=== PATIENT | male | born 1965 | race Caucasian/White ===

== ENCOUNTER 2018-06-04 08:44 | Day surgery (SDC) | payer BC ==
--- NOTE | 2018-06-02 17:15 | Pre-op HX & Phy Repo 2 SIG ---
DATE OF ADMISSION: 06/04/2018 SCHEDULED FOR OUTPATIENT SURGERY: June 04, 2018. HISTORY OF PRESENT ILLNESS: The patient is a 52-year-old male in overall good health with a symptomatic right inguinal hernia. The patient states that as a . He had bilateral inguinal hernias and only the right side was repaired in 2010. I repaired a left inguinal hernia and he did very well. He now has developed a right inguinal hernia with occasional pain and he is scheduled to undergo open repair with mesh. MEDICATIONS: Lipitor and Advil as needed. ALLERGIES: Sulfa and Vioxx. OPERATIONS: Left inguinal hernia repair 2010, right inguinal hernia repair as a . REVIEW OF SYSTEMS: Negative colonoscopy 2015. PHYSICAL EXAMINATION: GENERAL: The patient is 5 feet 7 inches, 150 pounds. He has recently been examined by his primary care physician, Dr. Ever Mclain, who was providing separate history and physical. Pertinent exam reveals the abdomen to be soft. There is no mass, tenderness, organomegaly. There is a moderate-size reducible right inguinal hernia. The left inguinal canal is intact. Testes and scrotum are within normal limits. EXTREMITIES: Femoral pulses are 3+. There is no inguinal lymphadenopathy. IMPRESSION: Right inguinal hernia. PLAN: I have had a full discussion with the patient regarding the nature of his condition, the nature of the surgery, indications, alternatives, options, and risks including bleeding, infection, recurrence, despite use of mesh, neuritis or neuralgia, testicular or scrotal swelling or other abnormality, etc. All questions have been answered. He understands and agrees to proceed with open repair of right inguinal hernia with mesh as an outpatient under anesthesia. Oli Ferguson M.D. DR: Shiva JOB#: [id number] CC:
[~2018-06-04] VITALS: Ht 170.2 cm; Wt 65.8 kg
[2018-06-04] VITALS (12 sets, daily range): BP systolic 92–118; BP diastolic 56–85
[~2018-06-04 08:44] MED LIST: NKM
[2018-06-04] MEDS ORDERED: MILK THISTLE140 M1 PO (09:34)
[2018-06-04] MEDS ORDERED: Lidocaine 1% Plain 30 ml INJ ONE (09:39)
[2018-06-04] MEDS ORDERED: Bacitracin 50000 Units Vial ONE (09:39)
[2018-06-04] MEDS ORDERED: Bupivacaine 0.5% 10ml INJ ONE ×2 (09:39→09:40)
--- NOTE | 2018-06-04 10:00 | Pre-Procedure Note/Attestation ---
Pre-Procedure Note/Attestation Complete Prior to Procedure Planned Procedure: right Procedure Narrative: repair right inguinal hernia Indications for Procedure Pre-Operative Diagnosis: right inguinal hernia Attestation I attest that I discussed the nature of the procedure; its benefits; risks and complications; and alternatives (and the risks and benefits of such alternatives ), prior to the procedure, with the patient (or the patient's legal union representative). I attest that, if there was a reasonable possibility of needing a blood transfusion, the patient (or the patient's legal union representative) was given the [facility] standardized written summary, pursuant to the [place] Blood Safety Act ([place] Health and Safety Code # 1645, as amended). I attest that I re-evaluated the patient just prior to the surgery and that there has been no change in the patient's H&P, except as documented below: none Oli Ferguson MD Jun 04, 2018 10:00
--- NOTE | 2018-06-04 10:05 | NUR ---
RIGHT EYE APPEARS MILDLY RED DUE TO LACK OF SLEEP PER PT.
--- NOTE | 2018-06-04 10:08 | Anethesia Preoperative Eval ---
Anesthesia Pre-op PMH/ROS General Date of Evaluation: Jun 04, 2018 Anesthesiologist: Cory ASA Score: ASA 2 Mallampati Score Class I : Soft palate, uvula, fauces, pillars visible Class II: Soft palate, uvula, fauces visible Class III: Soft palate, base of uvula visible Class IV: Only hard plate visible Mallampati Classification: Class II Surgeon: Marty Diagnosis: Right inguinal hernia Surgical Procedure: RIHR Anesthesia History: none Family History: no anesthesia problems Allergies: Coded Allergies: SHELLFISH DERIVED (Verified Allergy, Severe, 06/03/18) hives, throat swells up SULFA (SULFONAMIDE ANTIBIOTICS) (Verified Allergy, Severe, 06/03/18) hives Uncoded Allergies: all nuts (Allergy, Mild, 06/03/18) itchy skin and throat cashews (Allergy, Mild, 06/03/18) itchy skin and throat Medications: see eMAR Patient NPO?: Yes NPO Date: Jun 03, 2018 NPO Time: 23:00 Past Medical History Cardiovascular: Reports: other - HLD; Denies: HTN, CAD, [place], valve dz, arrhythmia Pulmonary: Denies: asthma, COPD, SANDI, other Gastrointestinal/Genitourinary: Reports: GERD; Denies: CRI, ESRD, other Neurologic/Psychiatric: Denies: dementia, CVA, depression/anxiety, TIA, other Endocrine: Denies: DM, hypothyroidism, steroids, other HEENT: Denies: cataract (L), cataract (R), glaucoma, [place] (L), [place] (R), other Hematology/Immune: Denies: anemia, DVT, bleeding disorder, other Musculoskeletal/Integumentary: Denies: OA, RA, DJD, DDD, edema, other PSxH Narrative: LIHR Anesthesia Pre-op Phys. Exam Physician Exam Last Vital Signs Date Time Temp Pulse Resp B/P (MAP) Pulse Ox O2 Delivery O2 Flow Rate FiO2 06/04/18 09:34 97.6 61 14 102/71 97 Room Air Constitutional: NAD Cardiovascular: RRR Respiratory: CTA Airway Exam Mallampati Score: Class II MO: full ROM: full Teeth: intact Anesthesia Pre-op A/P Labs see chart Studies Pre-op Studies: EKG - sr Risk Assessment & Plan Assessment: ASA II Plan: GA Status Change Before Surgery: No Pre-Antibiotics Drug: Iris Salgado MD Jun 04, 2018 10:08
[2018-06-04] MEDS ORDERED: NS Irrig 1000ml ONE (10:30)
[2018-06-04] MEDS ORDERED: LR 1000ml ONE (10:30)
[2018-06-04] MEDS ORDERED: Sterile Water Irrig 1000ml IRRIG ONE (10:30)
[2018-06-04] MEDS ORDERED: Midazolam 2mg/2ml Inj ONE (10:38)
[2018-06-04] MEDS ORDERED: Lidocaine 1% MPF 10mg/ml 5ml ONE (10:38)
[2018-06-04] MEDS ORDERED: fentaNYL 100 mcg/2 mL IV ONE (10:38)
[2018-06-04] MEDS ORDERED: Propofol 200mg/20ml IV ONE (10:38)
[2018-06-04] MEDS ORDERED: LR 1000ml 1,000 ML IVLG SCH (10:43)
[2018-06-04] MEDS ORDERED: fentaNYL 100 mcg/2 mL IV PRN (10:45)
[2018-06-04] MEDS ORDERED: Midazolam 2mg/2ml Inj IVP PRN (10:45)
[2018-06-04] MEDS ORDERED: Ketorolac 30mg Inj IV PRN (10:45)
[2018-06-04] MEDS ORDERED: Hydromorphone 0.5mg/0.5ml inj IVP PRN (10:45)
[2018-06-04] MEDS ORDERED: LORazepam Inj 2mg/ml 1ml IV PRN (10:45)
[2018-06-04] MEDS ORDERED: DiphenhydrAMINE 50mg/ml Inj IVP PRN (10:45)
[2018-06-04] MEDS ORDERED: Metoclopramide 10mg/2ml Inj IVP PRN (10:45)
[2018-06-04] MEDS ORDERED: Ketorolac 30mg Inj ONE (11:29)
--- NOTE | 2018-06-04 11:56 | Brief Operative Note ---
Immediate Post Operative Note Operative Note Pre-op Diagnosis: recurrent right inguinal hernia Procedure: repair recurrent right inguinal hernia Post-op Diagnosis: repair of recurrent indirect right inguinal hernia Post-op Diagnosis: same as pre-op Findings: consistent w/pre-op dx studies Surgeon: carol Anesthesiologist: wendy Anesthesia: general Specimen: none Complications: none Condition: stable Fluids: see anesthesia record Estimated Blood Loss: minimal Drains: none Implant(s) used?: Yes - Marlex prefix mesh plug Oli Ferguson MD Jun 04, 2018 11:56
--- NOTE | 2018-06-04 11:59 | Immediate Post-Op Evaluation ---
Immediate Post-Op Evalulation Immediate Post-Op Evalulation Procedure: RIHR Date of Evaluation: Jun 04, 2018 Time of Evaluation: 11:52 IV Fluids: 800 Blood Products: 0 Estimated Blood Loss: min Urinary Output: 0 Blood Pressure Systolic: 100 Blood Pressure Diastolic: 56 Pulse Rate: 68 Respiratory Rate: 19 O2 Sat by Pulse Oximetry: 99 Temperature (Fahrenheit): 97.6 Pain Score (1-10): 0 Nausea: No Vomiting: No Complications 0 Patient Status: awake, reacts, patent, none Hydration Status: adequate Drug: Ancef 1g Given Within 1 Hr of Incision: Yes Time Given: 10:45 Iris Ambrosio MD Jun 04, 2018 11:59
--- NOTE | 2018-06-04 11:59 | 48 Hour Post Anesthesia Eval ---
Post Anesthesia Evaluation Procedure: RIHR Date of Evaluation: Jun 04, 2018 Airway: patent Nausea: No Vomiting: No Pain Intensity: 0 Hydration Status: adequate Cardiopulmonary Status: at baseline Mental Status/LOC: patient returned to baseline Post-Anesthesia Complications: 0 Follow-up care needed: ready to discharge Iris Ambrosio MD Jun 04, 2018 11:59
--- NOTE | 2018-06-04 16:00 | Operative Note - Dictated ---
DATE OF OPERATION: 06/04/2018 SURGEON: Oli Ferguson M.D. PURCHASING OFFICER SURGEON: None. ANESTHESIOLOGIST: Dr. Ray. TYPE OF ANESTHESIA: General. PREOPERATIVE DIAGNOSIS: Recurrent right inguinal hernia. POSTOPERATIVE DIAGNOSIS: Recurrent indirect right inguinal hernia. OPERATION PERFORMED: Repair of right inguinal hernia with PerFix Marlex mesh plug. INDICATIONS: The patient had repair of a right inguinal hernia as a surgery. There was marked scarring and a wide opened internal ring primarily lateral to the cord. The floor of the inguinal canal was intact. DESCRIPTION OF PROCEDURE: The patient was taken to the operating room and under general anesthesia with sequential compression device stockings in place, he was prepped and draped in usual fashion. Previous right groin incision was reopened achieving hemostasis with cautery. The external oblique aponeurosis was opened laterally. It was identified laterally and there was a bulky hernia attached to the cord. The cord was encircled at the pubic tubercle and elevated. The floor was intact. The hernia bulge was circumferentially dissected well into the internal ring and reduced protecting the cord. Hemostasis was achieved with cautery. I used a medium size PerFix Marlex plug, inserted in the defect and sutured it with interrupted horizontal mattress 2-0 Prolene sutures to transversus tendon medially and the inguinal ligament laterally, obliterating the defect. The field was irrigated with antibiotic solution. Hemostasis was secured. There was no impingement or constriction of the cord. The incision was then closed with interrupted 3-0 Vicryl. There was no external oblique aponeurosis closed over the repair based on the previous surgery. The skin was closed with continuous 4-0 Monocryl, 0.5% Marcaine, 1% Xylocaine plain used for local infiltration. Tincture of benzoin and half-inch Steri-Strips applied followed by dry sterile dressing. Final sponge and needle counts were correct. At the end of the procedure, the right testis was rather retracted well down into the scrotum. The patient tolerated the procedure well and left the operating room in good condition. Oli Ferguson M.D. DR: FERNANDO JOB#: [id number] CC:
[2018-06-04] MEDS ORDERED: Norco 5mg/325mg tab ORAL PRN (19:01)
[2018-06-04] MEDS ORDERED: D5 1/2NS 1,000 ML IV SCH (19:01)
== END 2018-06-04 14:10 | disposition home or self-care (01) ==
LOC: SUR 08:44
DX: K40.91 Unilateral inguinal hernia, without obstruction or gangrene, recurrent (principal); E78.5 Hyperlipidemia, unspecified; K21.9 Gastro-esophageal reflux disease without esophagitis; N41.1 Chronic prostatitis; Z88.2 Allergy status to sulfonamides; Z88.8 Allergy status to other drugs, medicaments and biological substances; Z91.013 Allergy to seafood
CPT/HCPCS: 49520; C1781; J0690; J1885; J2001; J2250; J2405; J2704; J3010; J3490; 94003; 94150